=== PATIENT | male | born 1980 | race Two or more races ===

== ENCOUNTER 2020-08-19 23:27 | Inpatient (IN) | payer MEDICAID ==
[~2020-08-19] VITALS: Ht 170.2 cm; Wt 90.7 kg
[2020-08-20 01:15] VITALS: BP 144/89
[2020-08-20] MEDS ORDERED: MORPHINE SULFATE INJ 2 MG/ML DISP.SYRIN IV PRN (01:30)
[2020-08-20] MEDS ORDERED: IV NS 0.9% 1,000 ML IV PRN (01:30)
[2020-08-20] MEDS ORDERED: ONDANSETRON HCL/PF 4 MG/2 ML VIAL IVP PRN (01:30)
[2020-08-20] MEDS ORDERED: ZOLPIDEM TARTRATE 5 MG TABLET PO PRN (01:30)
[2020-08-20] MEDS ORDERED: Z GUARD REMEDY 2 OZ OINT TP PRN (01:30)
--- NOTE | 2020-08-20 01:30 | NUR ---
TELE/RN OPENING NOTES PATIENT TRANSFERRED FROM [facility], VIA EMT 2 ESCORT FROM [facility]. PATIENT SUSTAINED NO INJURIES DURING TRANSPORT. PATIENT IS ALERT AND ORIENTED X 4, CAMEROONIAN SPEAKING. NO SIGNS OF SOB OR RESPIRATORY DISTRESS NOTED. PATIENT IS TOLERATING RA WELL 99% O2. VITAL SIGNS ARE WITHIN NORMAL LIMITS. PATIENT DENIES CHEST PAIN AT THIS TIME. PATIENT HAD RIGHT AC IV ACCESS #20 G INTACT. PATIENT SKIN IS INTACT. PATIENT SIGNS BELONGINGS SHEET. PATIENT IN NO SIGNS OF DISTRESS. SAFETY MEASURES ARE IN PLACE, BED LOCKED AND PLACED IN LOW SETTING, SIDE RAILS UP X 2, CALL LIGHT WITHIN REACH. PATIENT IS NPO. WILL CONTINUE TO MONITOR.
--- NOTE | 2020-08-20 06:55 | NUR ---
TELE/RN CLOSING NOTES PATIENT IN BED RESTING. DR BEARD SEEN PATIENT THIS MORNING. PATIENT ALERT AND ORIENTED X 4. NO SOB OR RESPIRATORY DISTRESS. PATIENT IS NPO. HAS IV ACCESS ON RIGHT AC RUNNING 75 CC/HR NS. TELE READING S SAMEER 59. ALL PATIENT NEEDS HAVE BEEN MET DURING SHIFT. SAFETY MEASURES ARE IN PLACE, BED IS LOCKED AND IN LOW POSITION, CALL LIGHT WITHIN REACH. WILL ENDORSE CARE TO DAY SHIFT.
--- NOTE | 2020-08-20 07:30 | NUR ---
MS/RN OPENING NOTE PATIENT RECEIVED FROM ONCOLOGY PHARMACIST PATIENT IS IN BED RESTING COMFORTABLY. PATIENT IS A/O X4 VIETNAMESE SPEAKING. VS SIGNS WITHIN NORMAL RANGE. TELE MONITOR READING SINUS SAMEER. PATIENT IS IN NO PAIN AT THIS TIME. SAFETY PRECAUTION IN PLACE. PATIENT BED IS LOCKED AND IN LOWEST POSITION, CALL LIGHT WITHIN REACH. WILL CONTINUE TO MONITOR AND ENSURE SAFETY.
[2020-08-20 07:51] LABS: ALBUMIN 3.5 g/dL (3.4-5.0); BILIRUBIN,TOTAL 0.3 mg/dL (0.2-1.0); CALCIUM, SERUM 8.5 mg/dL (8.5-10.1); CREATININE 0.9 mg/dL (0.6-1.3); MAGNESIUM 2.3 mg/dL (1.8-2.4); PHOSPHORUS 2.6 mg/dL (2.5-4.9); POTASSIUM 3.6 mmol/L (3.5-5.1)
[2020-08-20 08:00] VITALS: BP 134/89
[2020-08-20 08:04] LABS: BASOPHILS # (AUTO) 0.1 /CMM (0.0-0.2); BASOPHILS % (AUTO) 0.6 % (0.0-2.0); EOSINOPHILS % (AUTO) 1.7 % (0.0-6.0); HEMATOCRIT 40 % (39-51); HEMOGLOBIN 13.8 g/dL (13.5-17.5); LYMPHOCYTES # (AUTO) 2.7 /CMM (0.8-4.8); LYMPHOCYTES % (AUTO) 32.5 % (20.0-44.0); MEAN CORPUSCULAR HGB CONC 34 g/dl (31.0-36.0); MEAN CORPUSCULAR VOLUME 87 fL (80-96); MONOCYTES # (AUTO) 0.6 /CMM (0.1-1.30); MONOCYTES % (AUTO) 7.2 % (2.0-12.0); NEUTROPHILS # (AUTO) 4.8 /CMM (1.8-8.9); PLATELET COUNT (AUTO) 298 /CMM (150-450); RED BLOOD CELL COUNT(AUTO) 4.62 MIL/uL (4.5-6.0); WHITE BLOOD COUNT (AUTO) 8.3 K/uL (4.3-11.0)
[2020-08-20] MEDS: PANTOPRAZOLE 40 MG TABLET.DR PO SCH (08:28)
[2020-08-20] MEDS: ENOXAPARIN SODIUM 40 MG/0.4 ML DISP.SYRIN SQ SCH (08:30)
[2020-08-20] MEDS: ACETAMINOPHEN 325 MG TABLET PO PRN ×2 (09:42→23:52)
[2020-08-20] MEDS: ASPIRIN 325 MG TABLET PO SCH (09:42)
--- NOTE | 2020-08-20 10:12 | NUR ---
MS/RN CTCA PATIENT WAS TAKEN FOR CTCA TEST.
[2020-08-20] MEDS ORDERED: IV NS 0.9% 250 ML IV ONE (10:13)
[2020-08-20] MEDS ORDERED: IOHEXOL-350 100 ML VIAL IV ONE (10:13)
[2020-08-20] MEDS ORDERED: NITROGLYCERIN 0.4 MG/TAB BOTTLE ONE (10:22)
[2020-08-20] MEDS ORDERED: METOPROLOL TARTRATE INJ 5 MG/5 ML AMPUL IVP PRN (10:30)
[2020-08-20] MEDS ORDERED: NITROGLYCERIN 0.4 MG/TAB BOTTLE SL ONE (10:30)
--- NOTE | 2020-08-20 10:35 | NUR ---
Patient tolerated the procedure. AAOX3, VSS. Report given to the floor nurse [id number]
--- NOTE | 2020-08-20 10:45 | NUR ---
MS/RN Back to room Patient back in room following CTCA, no results as of this time. Placed back on monitor, continues to read SB-NSR.
[2020-08-20 12:00] VITALS: BP 132/84
--- NOTE | 2020-08-20 13:00 | NUR ---
MS/RN Diet order Patient may now eat and drink, cardiac diet ordered as per Dr Turner.
--- NOTE | 2020-08-20 15:00 | NUR ---
MS/RN CTCA result CTCA resulted as negative.
[2020-08-20 16:00] VITALS: BP_SYST 125; BP_SYST 157; BP_DIAS 86; BP_DIAS 91
--- NOTE | 2020-08-20 18:41 | NUR ---
MS/RN End note Patient remains in stable condition, all needs attended. Continues to deny any chest pain or discomfort, tele reading NSR. Will endorse to night club manager.
--- NOTE | 2020-08-20 19:26 | NUR ---
WELDER HELPER OPENING NOTES PATIENT RECEIVED RESTING IN BED COMFORTABLY; A/OX4, URUGUAYAN SPEAKING; BREATHING EVEN AND UNLABORED; TOLERATING ROOM AIR WELL; NO SOB NOTED; PATIENT AMBULATORY WITH STEADY GAIT; PATIENT DENIES PAIN; NO DISTRESS NOTED; R AC H/L, INTACT AND PATENT; FLUSHING WELL; SAFETY PRECAUTIONS IMPLEMENTED; BED LOCKED IN LOW POSITION; SIDE RAILSX2; CALL LIGHT WITHIN REACH; WILL CONT TO MONITOR WITH THE HELP OF STAFF FOR SAFETY
[2020-08-20 20:00] VITALS: BP 130/82
--- NOTE | 2020-08-20 23:52 | NUR ---
CHEMICAL EQUIPMENT SALES ENGINEER NOTES PATIENT COMPLAINT OF EAR DISCOMFORT; REQUESTING PAIN MEDICATION; PATIENT RATED RIGHT EAR PAIN, 3/10; TYLENOL ADMINISTERED ORDERED; WILL CONT TO MONITOR
[2020-08-20 23:59] VITALS: BP 121/88
[2020-08-21] VITALS: BP 121/88
[2020-08-21 04:00] VITALS: BP 126/81
--- NOTE | 2020-08-21 06:35 | NUR ---
OSHA INSPECTOR CLOSING NOTES PATIENT RESTING IN BED COMFORTABLY; A/OX4, KYRGYZ SPEAKING; BREATHING EVEN AND UNLABORED; TOLERATING ROOM AIR WELL; NO SOB NOTED; NO DISTRESS NOTED; PATIENT MENTIONED RIGHT EAR DISCOMFORT BUT IS TOLERABLE; TELE MONITOR READS SINUS RHYTHM; PATIENT ABLE TO MAKE NEEDS KNOWN; R AC # H/L INTACT AND PATENT; ALL NEEDS RENDERED; SAFETY PRECAUTIONS IMPLEMENTED; BED LOCKED IN LOW POSITION; SIDE RAILSX2; CALL LIGHT WITHIN REACH; WILL ENDORSE GALLITO TO ONCOMING NURSE
[2020-08-21 07:34] LABS: CALCIUM, SERUM 8.8 mg/dL (8.5-10.1); MAGNESIUM 2.3 mg/dL (1.8-2.4); PHOSPHORUS 2.8 mg/dL (2.5-4.9); POTASSIUM 3.8 mmol/L (3.5-5.1)
[2020-08-21 07:37] LABS: BASOPHILS # (AUTO) 0.1 /CMM (0.0-0.2); BASOPHILS % (AUTO) 0.6 % (0.0-2.0); HEMATOCRIT 41 % (39-51); HEMOGLOBIN 13.9 g/dL (13.5-17.5); LYMPHOCYTES # (AUTO) 2.6 /CMM (0.8-4.8); LYMPHOCYTES % (AUTO) 30.4 % (20.0-44.0); MEAN CORPUSCULAR HGB CONC 34 g/dl (31.0-36.0); MEAN CORPUSCULAR VOLUME 88 fL (80-96); MONOCYTES # (AUTO) 0.7 /CMM (0.1-1.30); MONOCYTES % (AUTO) 7.6 % (2.0-12.0); NEUTROPHILS # (AUTO) 5.1 /CMM (1.8-8.9); NEUTROPHILS % (AUTO) 59.4 % (43.0-81.0); PLATELET COUNT (AUTO) 282 /CMM (150-450); RED BLOOD CELL COUNT(AUTO) 4.73 MIL/uL (4.5-6.0); WHITE BLOOD COUNT (AUTO) 8.6 K/uL (4.3-11.0)
[2020-08-21] MEDS: PANTOPRAZOLE 40 MG TABLET.DR PO SCH (08:34)
[2020-08-21] MEDS: ASPIRIN 325 MG TABLET PO SCH (08:34)
[2020-08-21] MEDS: ENOXAPARIN SODIUM 40 MG/0.4 ML DISP.SYRIN SQ SCH (08:35)
[2020-08-21] MEDS ORDERED: FAMO-131 PO (09:34)
== END 2020-08-21 11:30 | disposition home or self-care (01) | DRG 243 ==
LOC: TELE 08-20 00:54
PROVIDERS: ADMIT Nurse Practitioner Acute Care; ATTEND Nurse Practitioner Acute Care
DX: K21.9 Gastro-esophageal reflux disease without esophagitis (principal); I10 Essential (primary) hypertension; F17.200 Nicotine dependence, unspecified, uncomplicated; E66.9 Obesity, unspecified; Z68.31 Body mass index [BMI] 31.0-31.9, adult
CPT/HCPCS: 36415; 75574; 80048-TC; 80053-TC; 80061-TC; 83735-TC; 84100-TC; 84484-TC; 85025-TC; 93307-TC; A6253; G0378; J1650; J7030; J7050; Q9967